=== PATIENT | female | born 1970 | race Hispanic/Latino ===

== ENCOUNTER → 2019-02-23 | Outpatient (CLI) | payer OTHER | END | disposition home or self-care (01) | LOC: RAH 13:11 | PROVIDERS: ATTEND Family Medicine | DX: Z12.31 Encounter for screening mammogram for malignant neoplasm of breast (principal); N85.9 Noninflammatory disorder of uterus, unspecified; D25.9 Leiomyoma of uterus, unspecified; Z90.721 Acquired absence of ovaries, unilateral | CPT/HCPCS: 76856; 77067 ==

== ENCOUNTER 2024-06-02 10:11 | Emergency (ER) | payer BC, OTHER ==
[~2024-06-02] VITALS: Ht 149.9 cm; Wt 63.5 kg
--- NOTE | 2024-06-02 10:28 | ERN ---
General Chief Complaint: Mechanical Fall Stated Complaint: FALL Time Seen by MD: 10:12 History of Present Illness Initial Comments This 4-year-old female history of hypertension in GERD presents for syncopal episode. Patient reports that she has been in her normal state of health. She reports that this morning she was standing on a ladder reaching up into a closet she had a syncopal episode. She had no preceding symptoms. He was very brief. She did fall back and hit the back of her head. She was GCS 15. EMS was called she was stable vital signs and a normal exam for EMS throughout the transport. On arrival here she reports that she feels shaky but denies any palpitations chest pains dizziness neurologic symptoms or any other symptoms. She was never had syncopal episodes before. She was unsure what caused it. She denies drug abuse or alcohol abuse. Allergies: Coded Allergies: No Known Drug Allergies (Unverified Allergy, Unknown, 06/02/24) Past Medical History Past Medical History: Asthma, Hypertension Past Surgical History: None ROS Dictation CONSTITUTIONAL: No chills, no fever, no weakness, no diaphoresis, no malaise. HEAD/FACE: No signs of trauma. EENT: No eye pain, no blurred vision, no tearing, no double vision, no ear pain, no ear discharge, no nose pain, no nasal congestion, no throat pain, no throat swelling, no mouth pain. RESPIRATORY: No cough, no orthopnea, no SOB, no stridor, no wheezing. CARDIOVASCULAR: No chest pain, no edema, no palpitations, syncopal episode GASTROINTESTINAL/ABDOMINAL: No abdominal pain, no constipation, no diarrhea, no nausea, no vomiting. GENITOURINARY: No abnormal discharge, no dysuria, no frequent urination, no hem aturia. No complaints of pain in the genitals. MUSCULOSKELETAL: No back pain, no gout, no joint pain, no joint swelling, no mu scle pain, no muscle stiffness, no neck pain. INTEGUMENTARY: No change in color, no change in hair/nails, no dryness, no lesion, no lumps, no rash. NEUROLOGICAL/PSYCH: No anxiety, not depressed, no emotional problem, no headache, no numbness, no pre-existing deficit, no history of seizures, no tremors, no weakness. HEMATOLOGIC/LYMPHATIC: Not anemic, no history of blood clots, no apparent bleeding, no bruising, glands not swollen. All Systems Negative, Except as Noted. Physical Exam Physical Exam Dictation VITAL SIGNS: Reviewed. GENERAL APPEARANCE: Alert, oriented x3, no acute distress. EYES: PERRL, pink conjunctivas, eyelid no trauma, anterior chamber clear. EARS: Pinnas intact and no signs of trauma or erythema. Ear canals clear and no discharge. TMs no erythema. NOSE: No discharge, no bleeding. OROPHARYNX: Mouth normal, teeth no caries, tongue pink. Pharynx clear, no erythema. Tonsils no exudates, no abscesses noted. Mucous membrane moist. NECK: Supple, non-tender, no thyromegaly, no masses, no JVD, no bruits. BREAST: Deferred. CHEST: No tenderness, no crepitus, no paradoxical movement, no retractions. LUNGS: Clear, well-ventilated, symmetric, no rales, no wheezing, no rhonchi, no stridor, good breath sounds bilaterally. HEART: Regular rate, regular rhythm, no murmur, no gallops. VASCULAR: No peripheral edema. ABDOMEN: Soft, positive bowel sounds, nondistended, no guarding, nontender, no rebound, no masses no hepatomegaly, no splenomegaly, no Carolina's sign, no hernias. RECTAL: Deferred. GENITAL: Deferred. NEUROLOGICAL: Normal speech, gross motor function intact, gross sensory function intact. MUSCULOSKELETAL: Neck nontender, full range of motion, back nontender, full range of motion. EXTREMITIES: Nontender, full range of motion. SKIN: Color pink, dry, no turgor, no rash, no lacerations, no abrasions, no contusions. LYMPHATICS: Deferred. Results Laboratory and Microbiology Lab and Micro Result Laboratory Tests Test 06/02/24 10:58 06/02/24 11:08 Urine Color STRAW (YELLOW) Urine Appearance CLEAR (CLEAR) Urine pH 6.5 (5.0-8.0) Urine Specific [place] 1.003 (1.001-1.031) Urine Protein NEGATIVE mg/dL (NEGATIVE) Urine Glucose (UA) NEGATIVE mg/dL (NEGATIVE) Urine Ketones NEGATIVE mg/dL (NEGATIVE) Urine Occult Blood +- (TRACE) (NEGATIVE) H Urine Nitrate NEGATIVE (NEGATIVE) Urine Bilirubin NEGATIVE mg/dL (NEGATIVE) Urine Urobilinogen 0.2 mg/dL (0.2-1.0) Urine Leukocyte Esterase NEGATIVE Manny/uL Urine RBC 0-1 /HPF (0-1) Urine WBC 0-1 /HPF (0-1) Urine Bacteria None /HPF (None Seen) White Blood Count 6.8 K/uL (4.8-10.8) Red Blood Count 3.91 MIL/uL (4.00-5.50) L Hemoglobin 12.1 g/dL (12.0-16.0) Hematocrit 36.1 % (36-48) Mean Corpuscular Volume 92.3 fL (79-99) Mean Corpuscular Hemoglobin 30.9 pg (27.0-33.0) Mean Corpuscular Hemoglobin Concent 33.5 g/dL (32.0-36.0) Red Cell Distribution Width 13.2 % (11.0-15.5) Platelet Count 309 K/uL (130-400) Mean Platelet Volume 10.7 fL (7.5-10.5) H Immature Granulocyte % (Auto) 0.7 % (0-1) Neutrophils (%) (Auto) 57.3 % (40.0-77.0) Lymphocytes (%) (Auto) 29.9 % (21.0-51.0) Monocytes (%) (Auto) 6.2 % (3.0-13.0) Eosinophils (%) (Auto) 4.9 % (0.0-8.0) Basophils (%) (Auto) 1.0 % (0.0-5.0) Neutrophils # (Auto) 3.9 K/uL (1.8-7.7) Lymphocytes # (Auto) 2.0 K/uL (1.0-4.8) Monocytes # (Auto) 0.4 K/uL (0.1-1.0) Eosinophils # (Auto) 0.33 K/uL (0.00-0.70) Basophils # (Auto) 0.07 K/uL (0.00-0.20) Absolute Immature Granulocyte (auto 0.05 K/uL (0-1) Nucleated Red Blood Cells 0.0 % (0.0-0.19) D-Dimer Quantitative (PE/DVT) 573 ng/mL (0-500) *H Sodium Level 142 mmol/L (136-145) Potassium Level 4.2 mmol/L (3.5-5.1) Chloride Level 104 mmol/L (101-111) Carbon Dioxide Level 28 mmol/L (21-32) Blood Urea Nitrogen 13 mg/dL (7-18) Creatinine 0.6 mg/dL (0.5-1.0) Glomerular Filtration Rate Calc 105 mL/min (>90) Random Glucose 104 mg/dL (70-105) Total Calcium 9.0 mg/dL (8.5-10.1) Total Creatine Kinase 117 U/L (21-232) Troponin I High Sensitivity < 4.0 ng/L (4-50) L MDM CC: Syncopal episode Historian: Patient Comorbidities: Hypertension, asthma Limitations by social determinants of health: None Differential diagnosis: Vasovagal syncope, cardio syncope including a arrhythmia structural heart disease, orthostatic heart disease, stroke, head injury, electrolyte abnormality, seizure, other Vital signs: Stable remained stable Clinical exam is unremarkable. Cranial nerves are intact, moving all limbs, [id number] normal no signs of neurologic deficit. Cardiac examined normal according heart tones is unremarkable. Lung sounds are clear. No swelling or signs of heart failure. EKG (Independently interpreted by me): Sinus rhythm rate of 64 with a normal axis, good R-wave progression, intervals are stable no STEMI. Labs (independently ordered and interpreted by me ): CBC is normal. No anemia. Metabolic panel normal. CK and troponin normal. Urinalysis shows trace blood otherwise normal. D-dimer is mildly elevated 573. CT head without contrast ( independently interpreted by me ): No acute bleed or fractures or abnormalities. Per radiology read there is paranasal sinusitis. Patient was no complaints regarding this at this time. CXR (independently interpreted by me ): No focal infiltrates or acute abnormalities. CTA a of the chest (independently interpreted by me ): No acute pulmonary embolism. Treatment in ED: 1 L normal saline. Re-evaluation: Patient was at baseline. GCS 15, cranial nerves are intact. She overall feels well. No cardiac symptoms. She has been monitored on the awake overnight monitor telemetry for over 2 hours without any arrhythmia. Based on the presentation I have low suspicion for a serious cause of the syncopal episode at this time. the episode was nonexertional. She had no other cardiac symptoms at the time. She was no significant history of cardiac disease. This is the 1st episode. She was standing, not recumbent of the time. No associated symptoms. No prolonged loss of consciousness. Do not see any signs of cardiac disease at this time. Orthostatic vital signs were stable. At this point in time with the patient was safe for discharge to PCP follow up. Family agrees with this plan. ED Course Orders Procedure Category Date Status Time Cbc With Differential LAB 06/02/24 Complete 10:16 Cardiac Panel LAB 06/02/24 Complete 10:16 D-Dimer LAB 06/02/24 Complete 10:16 Urinalysis Profile LAB 06/02/24 Complete 10:16 Chest 1vw RAD 06/02/24 Resulted 10:16 Ct Head/Brain W/O CT 06/02/24 Resulted Contrast 10:16 12 Lead Ekg Tracing- EKG 06/02/24 Logged Technical 10:16 0.9%Nacl 1000ml (Ns PHA 06/02/24 Complete 1000ml) 10:30 Basic Metabolic Panel LAB 06/02/24 Complete 10:16 Orthostatic Vital CPOE 06/02/24 Transmitted Signs 10:16 Lactated Ringers PHA 06/02/24 Complete 1000ml (Lactated 10:30 Ct Chest Pe Protocol CT 06/02/24 Resulted Wwo Cont 12:01 Iohexol (Omnipaque) PHA 06/02/24 Complete 12:31 Current Medications Medications (Trade) Dose Ordered Sig/Keith Route PRN Reason Start Time Stop Time Status Last Admin Dose Admin Iohexol (Omnipaque) 35,000 mg STK-MED ONCE IV 06/02/24 12:31 06/02/24 12:32 DC Lactated Ringer's 1,000 ml @ 0 mls/hr ONCE ONCE IV 06/02/24 10:30 06/02/24 10:31 DC 06/02/24 11:45 Sodium Chloride 1,000 ml @ 0 mls/hr ONCE ONCE IV 06/02/24 10:30 06/02/24 10:31 DC Vital Signs Date Time Temp Pulse Resp B/P (MAP) Pulse Ox O2 Delivery O2 Flow Rate FiO2 06/02/24 10:12 98.2 80 16 154/73 98 Room Air DX & DISP Disposition: Discharge Departure Impression: Primary Impression: Syncope and collapse Condition: Stable Additional Instructions: You had a syncopal episode today. As we discussed, there are some dangerous causes of syncopal episodes. You do not appear to have any dangerous causes at this time. Your vital signs have been stable here in the emergency department. Your EKG is normal. The chest x-ray and the CT angiogram of your chest are unremarkable. Your blood work (CBC, BMP, CK, troponin, D-dimer) is unremarkable. The CT scan of your brain is normal. As we discussed, I recommend that you monitor for further symptoms. If you have any cardiac symptoms such as chest pains or palpitations, further episodes of syncope, or neurologic symptoms such as your arms or legs not working or a headache, please return to the emergency department for re-evaluation. Other bartlett, I recommend that you follow up with your primary doctor next week for further treatment and evaluation. Referrals: SOTERO OLSON DO (PCP) SAMIR PADRON DO Jun 02, 2024 10:28
[2024-06-02] MEDS: 0.9%NACL 1000ML 1,000 ML IV ONE (10:30)
--- NOTE | 2024-06-02 10:54 | HMCIMG ---
CT HEAD WITHOUT CONTRAST INDICATION: syncope TECHNIQUE: Noncontrast axial helical CT images from the vertex through the skull base using 5 mm slice thickness without contrast material. CT was performed with one or more of the following dose reduction techniques: Automated exposure control, adjustment of the mA and/or kV according to patient size, or use of iterative reconstruction technique. COMPARISON: None FINDINGS: The cerebral and cerebellar hemispheres are age-appropriate in appearance. No evidence for abnormal extra-axial fluid collections or masses. The ventricles and sulci are normal in size and configuration. No evidence for intracranial parenchymal, epidural, or subdural hemorrhage, mass effect or midline shift. The hernandez-white matter differentiation is well preserved. No secondary evidence to suggest acute ischemia. The brainstem and cerebellum appear normal. Extensive fluid throughout the paranasal sinuses. The visualized orbits appear unremarkable. The mastoid air cells are clear. The calvarium appears normal. IMPRESSION: Acute severe paranasal sinusitis without any acute intracranial process identified.
--- NOTE | 2024-06-02 10:54 | HMCIMG ---
PORTABLE CHEST RADIOGRAPH INDICATION: SYNCOPE COMPARISON: None FINDINGS: Heart size is normal. The pulmonary vascularity and carmen appear normal. No abnormal pulmonary parenchymal opacity or consolidation identified. No significant pleural effusion noted. No pneumothorax detected. IMPRESSION: No radiographic evidence for any acute cardiopulmonary process.
[2024-06-02 11:13] LABS: APPEARANCE,URINE CLEAR (CLEAR); BILIRUBIN,URINE NEGATIVE (NEGATIVE); GLUCOSE, URINE (UA) NEGATIVE (NEGATIVE); KETONES,URINE NEGATIVE (NEGATIVE); LEUKOCYTE ESTERASE ,URINE NEGATIVE Leu/uL (NEGATIVE); NITRATE,URINE NEGATIVE (NEGATIVE); PH,URINE 6.5 (5.0-8.0); PROTEIN,URINE NEGATIVE (NEGATIVE); UROBILINOGEN,URINE 0.2 mg/dL (0.2-1.0)
[2024-06-02 11:16] LABS: ADD UA MICROSCOPIC YES; COLOR,URINE STRAW (YELLOW)
[2024-06-02 11:16] LABS: BASOPHILS # (AUTO) 0.07 K/uL (0.00-0.20); EOSINOPHILS # (AUTO) 0.33 K/uL (0.00-0.70); EOSINOPHILS % (AUTO) 4.9 % (0.0-8.0); HEMATOCRIT 36.1 % (36-48); IMMATURE GRANULOCYTE ABSOLUTE 0.05 K/uL (0-1); LYMPHOCYTES % (AUTO) 29.9 % (21.0-51.0); MEAN CORPUSCULAR HEMOGLOBIN 30.9 pg (27.0-33.0); MEAN CORPUSCULAR HGB CONC 33.5 g/dL (32.0-36.0); MEAN CORPUSCULAR VOLUME 92.3 fL (79-99); MONOCYTES # (AUTO) 0.4 K/uL (0.1-1.0); MONOCYTES % (AUTO) 6.2 % (3.0-13.0); NEUTROPHILS # (AUTO) 3.9 K/uL (1.8-7.7); NEUTROPHILS % (AUTO) 57.3 % (40.0-77.0); PLATELET COUNT (AUTO) 309 K/uL (130-400); RED BLOOD CELL COUNT(AUTO) 3.91 MIL/uL (4.00-5.50); RED CELL DISTRIBUTION WIDTH 13.2 % (11.0-15.5); WHITE BLOOD COUNT (AUTO) 6.8 K/uL (4.8-10.8)
[2024-06-02 11:17] LABS: RBC,URINE 0-1 /HPF (0-1); WBC,URINE 0-1 /HPF (0-1)
[2024-06-02 11:34] LABS: CARBON DIOXIDE 28 mmol/L (21-32); CHLORIDE 104 mmol/L (101-111); CREATINE KINASE, TOTAL 117 U/L (21-232); CREATININE 0.6 mg/dL (0.5-1.0); GLOMERULAR FILTR. RATE CALC 105 mL/min (>90); GLUCOSE,RANDOM 104 mg/dL (70-105); POTASSIUM 4.2 mmol/L (3.5-5.1); SODIUM SERUM 142 mmol/L (136-145); UREA NITROGEN, BLOOD 13 mg/dL (7-18)
[2024-06-02] MEDS: LACTATED RINGERS 1000ML 1,000 ML IV ONE (11:45)
[2024-06-02] MEDS ORDERED: IOHEXOL 350 MG/ML 100ML INFUS..BTL IV ONE (12:31)
--- NOTE | 2024-06-02 12:54 | HMCIMG ---
CT ANGIOGRAM OF THE CHEST WITHOUT AND WITH CONTRAST. CT RECONSTRUCTIONS INDICATION: Syncope and elevated d-dimer TECHNIQUE: Routine axial images using 3 mm slice thickness were acquired from the lung apices to the bases before and after the intravenous administration of 100 mL of Omnipaque 350 contrast material using the pulmonary embolism protocol. Maximum Intensity Projection imaging in the sagittal and coronal planes were also provided. CT was performed with one or more of the following dose reduction techniques: Automated exposure control, adjustment of the mA and/or kV according to patient size, or use of iterative reconstruction technique. COMPARISON: None FINDINGS: The contrast bolus is of good quality for diagnosis of pulmonary embolism. The heart size is within normal limits without pericardial effusion. The main pulmonary arteries, segmental branches, and visualized subsegmental pulmonary arteries appear normal without intraluminal filling defects. Pulmonary trunk is not enlarged. No evidence for thoracic aortic aneurysm or dissection. The origins of the great vessels and thoracic aorta appear normal. The visible portions of the trachea and airways are patent. No pleural effusion, pneumothorax, abnormal opacity or consolidation, pulmonary nodule, or mass identified. Minimal lingular scarring. No axillary, hilar, or mediastinal lymphadenopathy detected. Limited views of the upper abdomen appear unremarkable. Visible osseous structures are intact. IMPRESSION: No evidence for pulmonary embolism. 2
[2024-06-02 13:33] VITALS: BP 147/64; PULSE 70; RESP 20; TEMP 98; O2SAT 99
--- NOTE | 2024-06-02 16:42 | EKG ---
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
== END 2024-06-02 13:35 | disposition home or self-care (01) ==
LOC: EDH 10:11
DX: R55 Syncope and collapse (principal); J45.909 Unspecified asthma, uncomplicated; I10 Essential (primary) hypertension; K21.9 Gastro-esophageal reflux disease without esophagitis
CPT/HCPCS: 99285; 70450; 96360; 71045; 96361; 82550; 84484; 80048; 85025; 85378; 81001; 36415; 71270; 93005; J7120; Q9967